=== PATIENT | male | born 1940 | race Caucasian/White ===

== ENCOUNTER 2022-11-30 08:28 | Emergency (ER) | payer MEDICARE, OTHER ==
--- NOTE | 2022-11-30 09:10 | ED Physician Documentation ---
PD HPI URI - Stated complaint Stated Complaint: COUGH, CONGESTION - Chief complaint Chief Complaint: Resp - History obtained from History obtained from: Patient - History of Present Illness Timing - onset: How many days ago (8) Timing duration: Days (8) Timing details: Gradual onset, Still present Associated symptoms: Dry cough, Dyspnea. No: Fever, Sore throat, NVD, Bilateral edema Contributing factors: No: Sick contact, Travel Similar symptoms before: Has not had sx before Recently seen: Clinic (walk in 4 days ago) Review of Systems Constitutional: denies: Fever Cardiac: denies: Chest pain / pressure Respiratory: reports: Dyspnea, Cough, Wheezing GI: denies: Vomiting, Diarrhea PD PAST MEDICAL HISTORY - Past Medical History Respiratory: None - Present Medications Home Medications: Ambulatory Orders Medication Instructions Recorded Confirmed Albuterol Sulf [Ventolin Hfa 1 - 2 puffs INH Q4HR PRN #1 each 11/30/22 Inhaler] Amoxicillin 500 mg PO TID #15 cap 11/30/22 dexAMETHasone [Decadron] 4 mg PO DAILY #5 tablet 11/30/22 guaiFENesin/CODEINE [Robitussin AC] 5 - 10 ml PO Q6H PRN #240 ml 11/30/22 guaiFENesin/CODEINE [Robitussin AC] 10 ml PO Q6H PRN #180 ml 11/30/22 - Allergies Allergies/Adverse Reactions: Allergies Allergy/AdvReac Type Severity Reaction Status Date / Time No Known Drug Allergies Allergy Verified 11/30/22 08:46 PD ED PE NORMAL - Vitals Vital signs reviewed: Yes - General General: Alert and oriented X 3, No acute distress, Well developed/nourished - Cardiac Cardiac: RRR, No murmur - Respiratory Respiratory: Clear bilaterally (no coarse sounds. There is some end exp wheezing scattered. ) - Abdomen Abdomen: Soft, Non tender Results - Vitals Vitals: Vital Signs - 24 hr 11/30/22 11/30/22 08:43 09:57 Temperature 36.2 C L Heart Rate 77 65 Respiratory 20 16 Rate Blood Pressure 164/81 H 132/77 H O2 Saturation 97 98 Oxygen O2 Source Room air - Labs Labs: Laboratory Tests 11/30/22 08:45 Nasal Adenovirus (PCR) NOT DETECTED Nasal B. parapertussis DNA (PCR) NOT DETECTED Nasal Coronavir 229E PCR NOT DETECTED Nasal Coronavir HKU1 PCR NOT DETECTED Nasal Coronavir NL63 PCR NOT DETECTED Nasal Coronavir OC43 PCR NOT DETECTED Nasal Enterovir/Rhinovir PCR NOT DETECTED Nasal Influenza B PCR NOT DETECTED Nasal Influenza A PCR NOT DETECTED Nasal Parainfluen 1 PCR NOT DETECTED Nasal Parainfluen 2 PCR NOT DETECTED Nasal Parainfluen 3 PCR NOT DETECTED Nasal Parainfluen 4 PCR NOT DETECTED Nasal RSV (PCR) NOT DETECTED Nasal B.pertussis DNA PCR NOT DETECTED Nasal C.pneumoniae (PCR) NOT DETECTED Jace Human Metapneumo PCR NOT DETECTED Nasal M.pneumoniae (PCR) NOT DETECTED Nasal SARS-CoV-2 (PCR) NOT DETECTED - Rads (name of study) chest xray Relevant Findings:: Prelim report reviewed (right lower lobe 1 cm nodule vs nipple shadow. ), EMP independent interpretation of test (no infiltrates), See rad report PD Medical Decision Making - ED course Complexity details: reviewed results (no infiltrates. Small right lower lobe nodule vs nipple shadow. I did inform patient and gave copy of the final report. ), considered differential (he has URI symptoms with cough for 8 days, not impr oving, but not worse per se. Trouble sleeping due to cough. Some wheezing at times. No histoyr of lung disease. Seen at [facility] 4 days ago and Dx URI with Rx of tessalon and OTC guafenasin. Pt says not improving the cough. ), d/w patient ED course: can try to improve cough and breathing with Albutero lMDI and codeine cough med as no improved with Tessalon/mucinex. Stilll seems most likely viral. Gave Rx for amox to have on hand with parameters to start it if not improving/worse. Initially directed meds to [facility] pharmacy, but they called back and asked it changed to [facility]. Departure - Departure Disposition: 01 Home, Self Care Clinical Impression: Upper respiratory infection, Cough Condition: Stable Record reviewed to determine appropriate education?: Yes Prescriptions: Albuterol Sulf [Ventolin Hfa Inhaler] 1 - 2 puffs INH Q4HR PRN #1 each PRN Reason: Shortness Of Air/Wheezing Amoxicillin 500 mg PO TID #15 cap dexAMETHasone [Decadron] 4 mg PO DAILY #5 tablet guaiFENesin/CODEINE [Robitussin AC] 10 ml PO Q6H PRN #180 ml PRN Reason: Cough guaiFENesin/CODEINE [Robitussin AC] 5 - 10 ml PO Q6H PRN #240 ml PRN Reason: Cough Comments: Your symptoms sound like a viral type illness. The duration and degree of coughing is not unusual as many of these will last 7 to 10 days and some degree of coughing can be for even 2 or 3 weeks. We can try to improve your coughing and symptoms with adding an albuterol inhaler 2 puffs 4 times daily for the next several days to week. Also Decadron steroid for upper airway and bronchial inflammation. Continue with the benzonatate. Add codeine cough medicine if needed. At this point I do not get the sense of a bacterial component. I wrote a prescription for amoxicillin antibiotic. I would hold off on that for now unless you develop subsequent fevers, productive sputum, blood-streaked sputum, worsening cough. With those symptoms, would be more suggestive of bacterial and you could add the antibiotic. Otherwise I would anticipate improvement over the next several days. Again some level of coughing may persist for a few weeks. Your chest x-ray did not show any signs of pneumonia. The radiologist commented on a small 1 cm nodule in the right lower which might be just a soft tissue shadow such as a nipple shadow. Follow-up with your primary care back home regarding this. They may want to repeat the x-ray versus other imaging such as CT scan to better define it. I sent your prescription to the [facility] pharmacy here in [place]. Discharge Date/Time: 11/30/22 09:58
--- NOTE | 2022-11-30 09:29 | XRAY Report ---
PROCEDURE: Chest 2 View X-Ray INDICATIONS: cough x 8 days TECHNIQUE: 2 views of the chest were acquired. COMPARISON: None. FINDINGS: Surgical changes and devices: None. Lungs and pleura: There is a small right lower lung nodule measuring 5 mm versus nipple shadow. No d ense consolidation or pleural effusion. Mediastinum: Mediastinal contours appear normal. Heart size is normal. Bones and chest wall: No suspicious bony lesions. Overlying soft tissues appear unremarkable. IMPRESSION: No acute radiographic abnormality. Small right lower lung nodule versus nipple shadow. Reviewed by: Lionel Moran MD on 11/30/2022 9:28 AM PDT Approved by: Lionel Moran MD on 11/30/2022 9:28 AM PDT Station ID: [id number]
[2022-11-30 09:58] VITALS: BP 132/77
[2022-11-30 10:11] LABS: B. PARAPERTUSSIS- RESP PCR PAN NOT DETECTED; B. PERTUSSIS- RESP PCR PANEL NOT DETECTED; C. PNEUMONIAE- RESP PCR PANEL NOT DETECTED; CORONAVIRUS 229E-RESP PCR NOT DETECTED; CORONAVIRUS HKU1-RESP PCR NOT DETECTED; CORONAVIRUS NL63-RESP PCR NOT DETECTED; CORONAVIRUS OC43-RESP PCR NOT DETECTED; HUMAN METAPNEUMOVIRUS NOT DETECTED; INFLUENZA A- RESP PCR PANEL NOT DETECTED; INFLUENZA B - RESP PCR PANEL NOT DETECTED; M. PNEUMONIAE- RESP PCR PANEL NOT DETECTED; PARAINFLUENZA VIRUS 1 NOT DETECTED; PARAINFLUENZA VIRUS 2 NOT DETECTED; PARAINFLUENZA VIRUS 3 NOT DETECTED; PARAINFLUENZA VIRUS 4 NOT DETECTED; RHINOVIRUS/ENTEROVIRUS NOT DETECTED; RSV- RESP PCR PANEL NOT DETECTED; SARS-CoV-2 -RESP PCR PANEL NOT DETECTED
== END 2022-11-30 09:58 | disposition home or self-care (01) ==
LOC: ED 08:28
DX: J06.9 Acute upper respiratory infection, unspecified (principal); Z20.822 Contact with and (suspected) exposure to COVID-19
CPT/HCPCS: 87633; 99284